=== PATIENT | male | born 1945 | race Caucasian/White ===

== ENCOUNTER 2021-01-08 09:59 | Emergency (ER) | payer MEDICARE, OTHER ==
[~2021-01-08] VITALS: Ht 190.5 cm; Wt 120.5 kg
[~2021-01-08 09:59] MED LIST: AMLOD/BENAZP1 CA2 PO; AMOXICILLIN500 MG PO; CRESTOR10 MG PO; DOXYCYCL HYC100 MG PO; FLONASE NASAL50 MCG; IBUPROFEN600 MG PO; PREDNISONE20 MG PO; PROTONIX40 M2 PO; TIZANIDINE4 MG PO; ZITHROMAX500 MG PO
[2021-01-08] MEDS ORDERED: KEFLEX500 M1 PO (12:38)
[2021-01-08 12:45] VITALS: BP 130/58
== END 2021-01-08 12:45 | disposition home or self-care (01) ==
LOC: ED 09:59
PROC: 0HQGXZZ Repair Left Hand Skin, External Approach (ICD-10-PCS; principal; 2021-01-08)
DX: S61.211A Laceration without foreign body of left index finger without damage to nail, initial encounter (principal); I10 Essential (primary) hypertension; W26.8XXA Contact with other sharp object(s), not elsewhere classified, initial encounter; Y93.89 Activity, other specified; Y92.009 Unspecified place in unspecified non-institutional (private) residence as the place of occurrence of the external cause

== ENCOUNTER 2025-01-26 21:46 | Emergency (ER) | payer MEDICARE, OTHER ==
[~2025-01-26] VITALS: Ht 188 cm; Wt 118.0 kg
[~2025-01-26 21:46] MED LIST changes: +KEFLEX500 M1 PO; +PROMETHAZINE HY25 M1 PO
[2025-01-26] MEDS ORDERED: IBUPROFEN 800 MG/TAB PO ONE (23:20)
[2025-01-26] MEDS ORDERED: Diph, Acellular Pertussis, Tet 0.5 ML/VIAL (Tdap) SDV IM ONE (23:20)
[2025-01-26] MEDS ORDERED: NEOMYCIN-BACITRACIN-POLYMYXIN 0.5 GM/PAK PAK EX ONE (23:20)
[2025-01-26] MEDS ORDERED: ACETAMINOPHEN 500 MG TAB PO ONE (23:20)
[2025-01-27 02:55] VITALS: BP 114/77
== END 2025-01-27 01:34 | disposition home or self-care (01) ==
LOC: ED 21:46
DX: S00.31XA Abrasion of nose, initial encounter (principal); S00.81XA Abrasion of other part of head, initial encounter; S60.511A Abrasion of right hand, initial encounter; I10 Essential (primary) hypertension; I48.91 Unspecified atrial fibrillation; W18.39XA Other fall on same level, initial encounter; Y93.89 Activity, other specified; Y92.410 Unspecified street and highway as the place of occurrence of the external cause
CPT/HCPCS: 90715